=== PATIENT | male | born 1985 | race American Indian/Alaskan Native ===

== ENCOUNTER 2018-04-17 17:38 | Emergency (ER) | payer OTHER ==
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
--- NOTE | 2018-04-17 19:15 | XRay Report ---
FINAL REPORT PROCEDURE: XR FOREARM RT TECHNIQUE: AP and lateral views the right forearm were obtained. HISTORY: forearm pain COMPARISON: None FINDINGS: The cortical and trabecular pattern appear normal. No fractures are seen. Bone density appears normal . No abnormal periosteal reaction or bone loss visualized. No radiopaque foreign bodies are identifie d. IMPRESSION: Negative exam.
--- NOTE | 2018-04-17 19:18 | XRay Report ---
FINAL REPORT PROCEDURE: XR SPINE THORACIC 2V TECHNIQUE: AP and lateral view of the thoracic spine were obtained. HISTORY: mid back pain COMPARISON: No prior studies are available for comparison. FINDINGS: Upper thoracic spine suboptimally visualized on the lateral view due to body habitus. No gross abnorm alities are seen. No fracture or subluxation is identified. Minimal osteophytic spurring is seen at a few of the intervertebral disc spaces. IMPRESSION: Suboptimal limited exam due to body habitus. No acute abnormality is seen. Mild degenerative disc billy nges appear to be present.
[2018-04-17 20:39] VITALS: BP 103/70
[2018-04-17] MEDS ORDERED: IBUPROFEN PO ONE (20:43)
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
== END 2018-04-17 21:07 | disposition home or self-care (01) ==
LOC: EDSEX → ED 17:38
DX: S39.012A Strain of muscle, fascia and tendon of lower back, initial encounter (principal); S56.911A Strain of unspecified muscles, fascia and tendons at forearm level, right arm, initial encounter; M54.6 Pain in thoracic spine; V89.2XXA Person injured in unspecified motor-vehicle accident, traffic, initial encounter; Y93.89 Activity, other specified; Y92.89 Other specified places as the place of occurrence of the external cause; Y99.8 Other external cause status
CPT/HCPCS: 72070; 99283